=== PATIENT | female | born 1995 | race Caucasian/White ===

== ENCOUNTER 2024-07-12 08:32 | Outpatient (REF) | payer OTHER, SELFPAY ==
--- NOTE | ~2024-07-12 | US_ITS ---
CLINICAL HISTORY: LONG IUD STRINGS US pelvis transvaginal Comparison: None Findings: Transvaginal scanning performed. Anteverted uterus is 7.9 cm length. Normal myometrium. No endometrial lesion, 9 mm thickness. Right ovary 3.2 x 2.3 x 2.2 cm. Left ovary 4.3 x 3.1 x 3.2 cm. There is a 2.6 cm simple left ovarian cyst. Normal color Doppler of both ovaries. No free fluid. IMPRESSION: 1. There is a 2.6 cm simple left ovarian cyst. This document has been electronically signed by: Jony Agarwal MD on 07/14/2024 10:24:11
== END 2024-07-12 08:33 | disposition home or self-care (01) ==
LOC: HO.UMASIMG 08:32
PROVIDERS: Visit Provider Nurse Practitioner Women's Health
DX: Z30.431 Encounter for routine checking of intrauterine contraceptive device (principal)
CPT/HCPCS: 76830; 76856

== ENCOUNTER → 2024-07-12 15:30 | Outpatient (BNV) | payer OTHER, SELFPAY | PROVIDERS: Visit Provider Radiology Diagnostic Radiology | DX: N83.202 Unspecified ovarian cyst, left side (principal) | CPT/HCPCS: 76830; 76856 ==